=== PATIENT | female | born 2000 | race Caucasian/White ===

== ENCOUNTER 2021-09-27 03:19 | Emergency (ER) | payer MEDICAID ==
[~2021-09-27] VITALS: Ht 167.6 cm; Wt 73.0 kg
[2021-09-27 03:32] VITALS: BP 139/91
== END 2021-09-27 03:55 | disposition left against medical advice (07) ==
LOC: ER 03:19
DX: Z53.21 Procedure and treatment not carried out due to patient leaving prior to being seen by health care provider (principal)